=== PATIENT | female | born 1965 | race Caucasian/White ===

== ENCOUNTER → 2020-05-07 07:43 | Outpatient (CLI) | payer OTHER, SELFPAY ==
--- NOTE | ~2020-05-07 | US_ITS ---
EXAMINATION: US abdomen limited EXAM DATE: 05/07/2020 08:26 INDICATION: Abdominal liver enzymes. TECHNIQUE: Multiple grayscale and Doppler images of the abdomen right upper quadrant were obtained (filemon y a technologist who performed the scan) and subsequently reviewed. There is no prior study for luciano reynolds. FINDINGS: The pancreatic head and body are normal in appearance. The pancreatic tail is not visualized. The l iver has normal echogenicity and contour. There are no focal liver lesions identified. There is no evidence of intrahepatic biliary duct dilation. Portal venous flow was seen in the hepatopedal, nor mal direction and has normal Doppler waveform. No right-sided hydronephrosis. Common bile duct measures 5 mm, which is normal. The gallbladder wall is normal in thickness, with ex pected amount of distention. No sonographic evidence of pericholecystic fluid. There is no cholelit hiases. Technologist performing exam reports patient did not demonstrate sonographic Carter's sign. Please note that this sign is less reliable in patients who have received pain medication. IMPRESSION: 1. Unremarkable abdominal ultrasound exam. Reviewed, dictated and finalized at location A.
== END ==
PROVIDERS: PCP Family Medicine; Visit Provider Family Medicine
DX: R74.8 Abnormal levels of other serum enzymes (principal)
CPT/HCPCS: 76705

== ENCOUNTER → 2020-06-15 12:58 | Outpatient (CLI) | payer OTHER, SELFPAY ==
--- NOTE | ~2020-06-15 | MR_ITS ---
EXAMINATION: MR pelvis wo/w con DATE: 06/15/2020 14:43 INDICATION: Diarrhea. Abnormal liver enzymes. TECHNIQUE: Magnetic resonance imaging (MRI) of the pelvis was performed without and with 15 mL Multih ance intravenous contrast. Fullfield sequences of the pelvis included axial and coronal T2-weighted S S FSE, coronal 2D FIESTA, axial T1-weighted FSPGR, axial dual-echo T1-weighted FSPGR and axial T1 concetta ghted LAVA. Postcontrast axial and coronal T1-weighted LAVA of the pelvis was also obtained. COMPARISON: None. FINDINGS: Bladder, uterus and bilateral adnexa are unremarkable. Visualized portions of the bowels are normal w ith no wall thickening or obstruction. Normal appendix. No free fluid in the pelvis. No pathologicall y enlarged pelvic, inguinal or lower abdominal lymphadenopathy. Bones are unremarkable with normal ma rrow signal. IMPRESSION: 1. Unremarkable pelvic ultrasound. Reviewed, dictated and finalized at location A.
--- NOTE | ~2020-06-15 | MR_ITS ---
EXAMINATION: MR abdomen wo/w con DATE: 06/15/2020 14:55 INDICATION: Abnormal liver function tests. Diarrhea. TECHNIQUE: Magnetic resonance imaging (MRI) of the abdomen was performed without and with 15 mL Multi Matthew intravenous contrast. Sequences included coronal T2-weighted FS FSE, coronal and axial FS FIEST A, axial T2-weighted FSE, coronal LAVA-flex, axial STIR FSE, axial DWI, axial dual-echo T1-weighted F SPGR, and axial LAVA. Postcontrast sequences included coronal LAVA-flex and a time course of axial LA VA. COMPARISON: Abdomen ultrasound 05/07/2020 FINDINGS: The liver, gallbladder, spleen, pancreas, adrenal glands, and kidneys are normal. There is an 11 mm s accular aneurysm of right renal artery. There are no dilated loops of bowel. There are no pathologica lly enlarged lymph nodes. There is no free intraperitoneal fluid. IMPRESSION: 1. 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 Reviewed, dictated and finalized at location A.
[2020-06-15 13:33] LABS: Estimated Glomerular Filt Rate > 60
== END ==
PROVIDERS: PCP Family Medicine; Visit Provider Family Medicine
DX: R19.7 Diarrhea, unspecified (principal); R74.8 Abnormal levels of other serum enzymes
CPT/HCPCS: 72197; 74183; A9577

== ENCOUNTER → 2022-04-24 08:16 | Outpatient (CLI) | payer OTHER, SELFPAY ==
--- NOTE | ~2022-04-24 | XR_ITS ---
EXAMINATION: XR elbow LT 2V DATE: 04/24/2022 08:54 INDICATION: Left elbow injury. Unspecified fall, initial encounter. TECHNIQUE: 2 views of left elbow were obtained. COMPARISON: None. FINDINGS: Bone alignment is normal. No fracture. Joint spaces are normal. There are enthesophytes at the sublime tubercle of proximal ulna and lateral humeral epicondyle. No joint effusion. IMPRESSION: 1. No fracture. Reviewed, dictated and finalized at location A. IMPRESSION: 1. No fracture.
--- NOTE | ~2022-04-24 | XR_ITS ---
EXAMINATION: XR knee LT min 4V DATE: 04/24/2022 08:54 INDICATION: Unspecified fall, initial encounter. TECHNIQUE: 4 views of left knee were obtained. COMPARISON: Left knee radiographs 11/26/2011 FINDINGS: Bone alignment is normal. No fracture. There is mild tricompartmental osteoarthritis. No kn ee joint effusion. IMPRESSION: 1. Mild left knee osteoarthritis. Reviewed, dictated and finalized at location A.
--- NOTE | ~2022-04-24 | XR_ITS ---
EXAMINATION: XR shoulder LT min 2V DATE: 04/24/2022 08:55 INDICATION: Unspecified fall, initial encounter. TECHNIQUE: 4 views of left shoulder were obtained. COMPARISON: None. FINDINGS: Bone alignment is normal. No fracture. Glenohumeral joint is normal. There is moderate acro mioclavicular joint osteoarthritis. There are changes of anterior fusion procedure in cervical spine. IMPRESSION: 1. Moderate acromioclavicular joint osteoarthritis. Reviewed, dictated and finalized at location A.
--- NOTE | ~2022-04-24 | XR_ITS ---
EXAMINATION: XR ankle LT 2V DATE: 04/24/2022 08:55 INDICATION: Unspecified fall, initial encounter. TECHNIQUE: 2 views of left ankle were obtained. COMPARISON: None. FINDINGS: Bone alignment is normal. No fracture. Joint spaces are normal. There are enthesophytes at the posterior and plantar aspects of calcaneal tuberosity. IMPRESSION: 1. No fracture. Reviewed, dictated and finalized at location A. IMPRESSION: 1. No fracture.
--- NOTE | ~2022-04-24 | XR_ITS ---
EXAMINATION: XR knee RT min 4V DATE: 04/24/2022 08:54 INDICATION: Unspecified fall, initial encounter. TECHNIQUE: 4 views of right knee were obtained. COMPARISON: Right knee radiograph 04/30/2018 FINDINGS: Bone alignment is normal. No fracture. There is moderate osteoarthritis of medial and kahn lofemoral compartments and mild osteoarthritis of lateral compartment. No knee joint effusion. IMPRESSION: 1. Moderate right knee osteoarthritis. Reviewed, dictated and finalized at location A.
== END ==
PROVIDERS: PCP Family Medicine; Visit Provider Nurse Practitioner Gerontology
DX: M25.579 Pain in unspecified ankle and joints of unspecified foot (principal); M25.529 Pain in unspecified elbow; M19.012 Primary osteoarthritis, left shoulder; M17.0 Bilateral primary osteoarthritis of knee
CPT/HCPCS: 73030; 73070; 73564; 73600

== ENCOUNTER 2023-04-21 14:34 | Outpatient (CLI) | payer OTHER, SELFPAY ==
--- NOTE | ~2023-04-21 | XR_ITS ---
EXAMINATION: XR facial bones min 3V DATE: 04/21/2023 15:02 INDICATION: Left superior orbit pain. Fall. TECHNIQUE: 5 views of the facial bones were obtained. COMPARISON: Head CT 04/21/2023 FINDINGS: Bone alignment is normal. No fracture. IMPRESSION: 1. No fracture. Reviewed, dictated and finalized at location A. IMPRESSION: 1. No fracture.
--- NOTE | ~2023-04-21 | XR_ITS ---
EXAM: XR shoulder LT min 2V DATE: 04/21/2023 15:02 HISTORY: FALL X3 DAYS AGO, PAIN IN SHOULDER SINCE FALL . COMPARISON: 822. FINDINGS: Incompletely visualized, uncomplicated appearing ACDF hardware. Decreased mineralization. No fracture or dislocation. No lytic or blastic lesion. Moderate AC joint and mild glenohumeral joint degenerative change. Curvilinear ossific fragment along the posterior inferior aspect of the glenoid , unchanged. No erosion or periosteal change. Soft tissues within normal limits. IMPRESSION: No acute osseous finding. Polyarticular osteoarthritis of the left shoulder. Osseous frag ment at the posterior inferior glenoid may represent a prominent osteophyte or old reverse osseous Ba nkart lesion. Reviewed, dictated and finalized at location K. IMPRESSION: No acute osseous finding. Polyarticular osteoarthritis of the left shoulder. Osseous fragment at the posterior inferior glenoid may represent a pr ominent osteophyte or old reverse osseous Bankart lesion.
--- NOTE | ~2023-04-21 | CT_ITS ---
EXAMINATION: CT brain wo con DATE: 04/21/2023 15:24 INDICATION: Head contusion TECHNIQUE: Computed tomography (CT) of the head was performed without intravenous contrast. Sagittal and coronal reconstructions were performed. The mA was adjusted according to patient size. Iterative reconstruction technique was employed. The dose-length product was 605.33 mGy-cm. COMPARISON: None FINDINGS: No fracture. No acute intracranial hemorrhage, acute infarction or abnormal extra axial fluid collect ion. Ventricles are normal and symmetric. No mass/mass effect. The orbits, paranasal sinuses and mast oid air cells are normal. IMPRESSION: 1. No fracture or acute intracranial process. Reviewed, dictated and finalized at location L.
== END 2023-04-21 14:35 | disposition home or self-care (01) ==
LOC: ANHIMG 14:42
PROVIDERS: PCP Family Medicine; Visit Provider Family Medicine
DX: R51.9 Headache, unspecified (principal); S00.93XA Contusion of unspecified part of head, initial encounter; S00.83XA Contusion of other part of head, initial encounter; S40.019A Contusion of unspecified shoulder, initial encounter; X58.XXXA Exposure to other specified factors, initial encounter
CPT/HCPCS: 70150; 70450; 73030